=== PATIENT | female | born 1980 | race Caucasian/White ===

== ENCOUNTER 2018-07-10 12:58 | Emergency (ER) | payer OTHER ==
[~2018-07-10] VITALS: Ht 165.1 cm; Wt 83.0 kg
[~2018-07-10 12:58] MED LIST: FLEXERIL5 MG PO; NAPROXEN500 M1 PO
== END 2018-07-10 15:34 | disposition home or self-care (01) ==
LOC: ER 12:58
DX: B34.9 Viral infection, unspecified (principal)

== ENCOUNTER 2023-01-26 19:20 | Emergency (ER) | payer OTHER ==
[~2023-01-26] VITALS: Ht 165.1 cm; Wt 86.2 kg
[2023-01-26 21:11] LABS: HEMATOCRIT 39.5 % (36.0-45.00); HEMOGLOBIN 12.9 g/dL (12.0-15.00); MEAN CELL VOLUME 92.9 fL (80.00-100.00); MEAN CORPUSCULAR HEMOGLOBIN 30.4 pg (27.00-32.0); MEAN CORPUSCULAR HGB CONC 32.8 g/dl (32.0-36.0); PLATELET COUNT 265 K/uL (150-450); RED BLOOD COUNT 4.25 M/uL (4.00-6.00)
[2023-01-26 21:33] LABS: ALBUMIN 3.6 gm/dL (3.4-5.0); BILIRUBIN TOTAL 0.17 mg/dL (0.3-1.2); CALCIUM 8.9 mg/dL (8.5-10.1); CREATININE SERUM 1.01 mg/dL (0.55-1.02); GFR 59.82; GLOBULINA 3.6 G/DL (2.4-3.5); POTASSIUM 4.01 mEq/L (3.5-5.1); TOTAL PROTEIN 7.2 gm/dL (6.4-8.2)
== END 2023-01-27 00:25 | disposition home or self-care (01) ==
LOC: ER 19:21
PROVIDERS: General Practice
DX: R10.31 Right lower quadrant pain (principal)
CPT/HCPCS: 36415; 74177; 96365; 99284; J1885; Q9965